=== PATIENT | female | born 1965 | race African-American/Black ===

== ENCOUNTER 2020-01-24 13:28 | Emergency (ER) | payer SELFPAY ==
[~2020-01-24] VITALS: Ht 170.2 cm; Wt 91.0 kg
[2020-01-24] MEDS ORDERED: SODIUM CHLORIDE 0.9% 1,000 ML IV ONE (14:22)
[2020-01-24] MEDS ORDERED: METHYLPREDNISOLONE SOD SUCC 125 MG/2 ML VIAL IV ONE (14:30)
[2020-01-24] MEDS ORDERED: DIPHENHYDRAMINE 50MG CAPSULE PO ONE (14:30)
[2020-01-24] MEDS ORDERED: FAMOTIDINE 20MG/2ML VIAL IV ONE (14:30)
[2020-01-24 14:35] LABS: BASOPHILS % 0.4 % (0.0-2.0); HEMOGLOBIN. 13.8 g/dL (12.0-16.0); LYMPHOCYTES % 36.4 % (20.0-50.0); MEAN CORPUSCULAR HEMOGLOBIN 31.4 pg (28.0-32.0); MEAN CORPUSCULAR VOLUME 90.9 fL (81.0-99.0); MONOCYTES % 11.1 % (2.0-8.0); NEUTROPHILS % 48.1 % (40.0-76.0); PLATELET 189 x1000/uL (130-400); RED CELL DISTRIBUTION WIDTH 12.8 % (11.6-14.6)
[2020-01-24 14:44] LABS: CHLORIDE 100 mEq/L (98-107)
[2020-01-24 14:46] LABS: INR 0.9; PROTHROMBIN TIME 10.2 sec (9.6-11.0)
[2020-01-24 15:37] VITALS: BP 147/86
== END 2020-01-24 16:04 | disposition home or self-care (01) ==
LOC: ER 13:57
DX: T78.3XXA Angioneurotic edema, initial encounter (principal); I10 Essential (primary) hypertension
CPT/HCPCS: 36415; 71045; 80053; 85025; 85610; 93005; 96374; 96375; 99285; J2930; J3490; J7030; Q0163

== ENCOUNTER 2025-09-20 21:03 | Emergency (ER) | payer OTHER ==
[~2025-09-20] VITALS: Ht 167.6 cm; Wt 80.0 kg
[2025-09-20 21:14] VITALS: O2SAT 99
[2025-09-20] MEDS: LIDOCAINE 5% PATCH TOP SCH (22:17)
[2025-09-20] MEDS: ONDANSETRON 4MG ODT PO ONE (22:18)
[2025-09-20] MEDS: KETOROLAC 15MG/ML VIAL IM ONE (22:18)
[2025-09-20] MEDS: ACETAMINOPHEN 500MG TABLET PO ONE (22:18)
[2025-09-21 00:32] LABS: BASOPHILS % 0.3 % (0.0-2.0); EOSINOPHILS % 0.1 % (0.0-5.0); HEMATOCRIT. 41.3 % (36.0-48.0); HEMOGLOBIN. 13.8 g/dL (12.0-16.0); LYMPHOCYTES % 17.2 % (20.0-50.0); MEAN PLATELET VOLUME 9.3 fl (7.4-10.4); MONOCYTES % 4.1 % (2.0-8.0); NEUTROPHILS % 78.3 % (40.0-76.0); PLATELET 209 x1000/uL (130-400); RED BLOOD CELL COUNT 4.62 mill/uL (4.2-5.4); RED CELL DISTRIBUTION WIDTH 14.8 % (11.6-14.6)
[2025-09-21 00:40] LABS: CREATININE 1.2 mg/dL (0.6-1.0); UREA NITROGEN BLOOD 20.0 mg/dL (9-23)
[2025-09-21] MEDS: MORPHINE SULFATE 4 MG/ML INJ (FOR IV/IM USE) IV ONE (02:51)
[2025-09-21] MEDS: IOHEXOL-350 100 ML BOTTLE ONE (02:55)
[2025-09-21] MEDS: IOHEXOL-350 50 ML BOTTLE ONE (02:55)
[2025-09-21 04:06] VITALS: BP 152/87; PULSE 87; RESP 16; TEMP 36.7; O2SAT 100
[2025-09-21] MEDS: HYDRALAZINE HCL 10MG TABLET PO ONE (04:20)
== END 2025-09-21 04:30 | disposition short-term general hospital (02) ==
LOC: ER 21:03 → CMPBEDREQ 09-21 08:47
DX: M25.552 Pain in left hip (principal); R11.2 Nausea with vomiting, unspecified; E87.6 Hypokalemia; I10 Essential (primary) hypertension; Z96.649 Presence of unspecified artificial hip joint
CPT/HCPCS: 99285; 74176; 36415; 96372; 96374; 73706; 93971; 80048; 85025; J1885; Q0162; Q9967; J2270